=== PATIENT | male | born 1960 | race Two or more races ===

== ENCOUNTER 2025-08-06 07:16 | Outpatient (CLI) | payer OTHER ==
[2025-08-06 09:42] LABS: ALT/SGPT 26.0 U/L (12-78); AST/SGOT 15.0 U/L (15-37); BILIRUBIN TOTAL 0.46 mg/dL (0.3-1.2); BUN CREA RATIO 20.0 (7.0-25.0); CREATININE SERUM 0.91 mg/dL (0.70-1.30); FE 50.0 ug/dl (65-175); GFR 83.1; GLOBULINA 3.5 G/DL (2.4-3.5); GLUCOSE FASTING 109.0 mg/dL (65-100); LDH 161.0 U/L (87-241); OSMOLALITY SERUM 284.0 MOSM/KG (275-295); PROSTATIC SPECIFIC ANTIGEN 1.75 NG/ML (0.010-4.00); T4 FREE 1.11 NG/ML (0.76-1.46); TSH 2.41 uIU/mL (0.358-3.74)
[2025-08-06 10:25] LABS: BASO % 0.8 % (0.1-1.2); EOS # 0.39 (0.04-0.54); EOS % 3.2 % (0.7-7.0); LYMPH # 1.96 (1.18-3.74); LYMPH % 16.1 % (19.3-53.1); MEAN PLATELET VOLUME 10.50 fl (9.4-12.4); MONO # 0.96 (0.24-0.82); MONO % 7.9 % (4.7-12.5); NEUT # 8.70 (1.56-6.13); NEUT % 71.7 % (34.0-71.1); RED CELL DISTRIBUTION WIDTH 14.8 % (11.6-14.4)
[2025-08-06 14:38] LABS: FOLIC ACID 15.63 ng/ml (4.78-20)
[2025-08-09 10:08] LABS: ANTI THYROID PEROXIDASE < 9 IU/mL (0-34)
[2025-08-10 14:07] LABS: PARIETAL CELL ANTIBODIES 0.9 Units (0.0-20.0)
[2025-08-11 06:07] LABS: g6pd quant 254 (127-427)
== END 2025-08-06 07:20 | disposition home or self-care (01) ==
LOC: LAB 07:16
PROVIDERS: ATTEND Internal Medicine Hematology & Oncology
DX: D50.8 Other iron deficiency anemias (principal); I10 Essential (primary) hypertension; R74.02 Elevation of levels of lactic acid dehydrogenase [LDH]; K76.89 Other specified diseases of liver; R79.9 Abnormal finding of blood chemistry, unspecified; D63.8 Anemia in other chronic diseases classified elsewhere; D55.0 Anemia due to glucose-6-phosphate dehydrogenase [G6PD] deficiency; D51.3 Other dietary vitamin B12 deficiency anemia; D51.1 Vitamin B12 deficiency anemia due to selective vitamin B12 malabsorption with proteinuria; D51.0 Vitamin B12 deficiency anemia due to intrinsic factor deficiency; E03.8 Other specified hypothyroidism; E06.3 Autoimmune thyroiditis; R97.0 Elevated carcinoembryonic antigen [CEA]; R97.8 Other abnormal tumor markers; R97.20 Elevated prostate specific antigen [PSA]; D72.828 Other elevated white blood cell count; N40.1 Benign prostatic hyperplasia with lower urinary tract symptoms; E08.65 Diabetes mellitus due to underlying condition with hyperglycemia; E55.9 Vitamin D deficiency, unspecified; M10.00 Idiopathic gout, unspecified site; D53.0 Protein deficiency anemia